=== PATIENT | female | born 1970 ===

== ENCOUNTER 2017-11-12 16:32 | Inpatient (IN) | payer OTHER ==
[~2017-11-12] VITALS: Ht 162.6 cm; Wt 86.2 kg
[2017-11-12] MEDS ORDERED: ATENOLOL25 MG PO (16:41)
[2017-11-12] MEDS ORDERED: PROTONIX20 MG PO (16:42)
[2017-11-16] MEDS ORDERED: KETO10TA2 PO (12:04)
[2017-11-16] MEDS ORDERED: OXYC1TAB9 PO (12:04)
[2017-11-16] MEDS ORDERED: MIRALAX17 GM PO (12:09)
[2017-11-16] MEDS ORDERED: GAS RELIEF125 MG PO (12:09)
== END 2017-11-16 12:19 | DRG 743 ==
LOC: O/R 11-13 06:00 → OB/GYN 11-13 06:00 → SURG 11-13 16:31 → OB/GYN 11-16 12:19
PROVIDERS: Obstetrics & Gynecology
PROC: 0UT70ZZ Resection of Bilateral Fallopian Tubes, Open Approach (ICD-10-PCS; 2017-11-13)
PROC: 0UT90ZZ Resection of Uterus, Open Approach (ICD-10-PCS; principal; 2017-11-13 10:00)
DX: D25.9 Leiomyoma of uterus, unspecified (principal); N72 Inflammatory disease of cervix uteri; N84.0 Polyp of corpus uteri; N80.0 Endometriosis of uterus